=== PATIENT | male | born 1995 | race African-American/Black ===

== ENCOUNTER 2017-05-10 02:06 | Emergency (ER) | payer OTHER ==
[~2017-05-10] VITALS: Ht 180.3 cm; Wt 74.8 kg
[2017-05-10 02:10] VITALS: BP_SYST 147
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
--- NOTE | 2017-05-10 02:10 | NUR ---
Patient to ER bed 4 to gown for evaluation. Side rails up.
--- NOTE | 2017-05-10 02:20 | NUR ---
ER MD Mera at bedside for medical evaluation.
[2017-05-10] MEDS ORDERED: DIPH-TET-PERTUS Vaccine 0.5 ML VIAL (ADACEL) I.M. ONE (02:30)
[2017-05-10] MEDS ORDERED: traMADol HCL HCL 50 MG TABLET (ULTRAM) PO ONE (02:30)
--- NOTE | 2017-05-10 03:08 | NUR ---
No adverse reactions noted after medication administration. Will continue to monitor.
[2017-05-10 04:08] VITALS: BP_SYST 136
--- NOTE | 2017-05-10 04:08 | NUR ---
Patient given written and verbal discharge instructions and verbalizes understanding. ER MD discussed with patient the results and treatment provided. Patient in stable condition. ID arm band removed. Rx of Motrin and Tramadol given. Patient educated on pain management and to follow up with PMD. Pain Scale 0/10. Opportunity for questions provided and answered.
== END 2017-05-10 04:08 | disposition home or self-care (01) ==
LOC: SED 02:06
DX: S60.222A Contusion of left hand, initial encounter (principal); R51 Headache; V49.9XXA Car occupant (driver) (passenger) injured in unspecified traffic accident, initial encounter; Y93.89 Activity, other specified; Y92.410 Unspecified street and highway as the place of occurrence of the external cause; Y99.8 Other external cause status
CPT/HCPCS: 72040-TC; 90715; 99284